=== PATIENT | male | born 1950 | race Caucasian/White ===

== ENCOUNTER 2017-12-21 16:16 | Emergency (ER) | payer MEDICARE, OTHER ==
[~2017-12-21] VITALS: Ht 182.9 cm; Wt 77.1 kg
[2017-12-21] MEDS ORDERED: LIPITOR40 MG PO (16:32)
[2017-12-21] MEDS ORDERED: ASPIR 8181 MG PO (16:32)
== END 2017-12-21 18:09 | disposition home or self-care (01) ==
LOC: EDBD 16:16 → ED 16:16
PROC: 0HQ1XZZ Repair Face Skin, External Approach (ICD-10-PCS; principal; 2017-12-21)
DX: S01.111A Laceration without foreign body of right eyelid and periocular area, initial encounter (principal); I10 Essential (primary) hypertension; W01.198A Fall on same level from slipping, tripping and stumbling with subsequent striking against other object, initial encounter; Z88.2 Allergy status to sulfonamides; Z79.82 Long term (current) use of aspirin; Z79.899 Other long term (current) drug therapy
CPT/HCPCS: 12013; 70450; 99284